=== PATIENT | female | born 1970 | race Two or more races ===

== ENCOUNTER 2020-07-17 11:45 | Inpatient (IN) | payer OTHER ==
[~2020-07-17] VITALS: Ht 154.9 cm; Wt 59.0 kg
[2020-07-17] MEDS ORDERED: TOPROL XL25 M1 PO (13:56)
[2020-07-26] MEDS ORDERED: IBUPROFEN800 MG PO (07:32)
[2020-07-26] MEDS ORDERED: OXYC1TAB9 PO (07:32)
== END 2020-07-26 10:32 | disposition home or self-care (01) | DRG 743 ==
LOC: O/R 07-24 07:32 → SURH 07-24 08:30 → OB/GYN 07-24 15:51
PROVIDERS: ADMIT Obstetrics & Gynecology Gynecology; ATTEND Obstetrics & Gynecology Gynecology
PROC: 0UB70ZZ Excision of Bilateral Fallopian Tubes, Open Approach (ICD-10-PCS; 2020-07-24)
PROC: 0UT90ZZ Resection of Uterus, Open Approach (ICD-10-PCS; principal; 2020-07-24 08:30)
DX: D25.1 Intramural leiomyoma of uterus (principal); D25.2 Subserosal leiomyoma of uterus; N80.0 Endometriosis of uterus; N83.8 Other noninflammatory disorders of ovary, fallopian tube and broad ligament; I10 Essential (primary) hypertension